=== PATIENT | female | born 1965 | race Caucasian/White ===

== ENCOUNTER 2017-11-20 04:58 | Inpatient (IN) | payer OTHER ==
[~2017-11-20] VITALS: Ht 162.6 cm; Wt 74.1 kg
[2017-11-20 05:33] LABS: HEMATOCRIT 35.1 % (36.0-46.0); HEMOGLOBIN 11.7 G/DL (11.9-15.5); MCH 25.7 PG (29.0-34.0); MCHC 33.3 G/DL (30.0-36.0); MCV 77.1 FL (83-99); PLATELET COUNT 153 K/uL (156-360); RBC DIS.WIDTH-CV 15.3 % (11.8-14.6); RBC DIS.WIDTH-SD 42.2 % (39-53); RED BLOOD COUNT 4.55 M/uL (3.80-5.20); WHITE BLOOD COUNT 12.9 K/uL (4.1-10.2)
[2017-11-20 05:42] LABS: CHLORIDE 95 mEq/L (99-109); POTASSIUM 3.9 mEq/L (3.7-5.4); SODIUM 135 mEq/L (136-147)
[2017-11-20 05:44] LABS: GLUCOSE 336 mg/dL (70-99)
[2017-11-20 05:48] LABS: CREATININE 1.5 mg/dL (0.6-1.3); GFR ESTIMATE (CALCULATED) 39 mL/min/
[2017-11-20 05:49] LABS: UREA NITROGEN (BUN) 27 mg/dL (9-23)
[2017-11-20 06:04] LABS: LIPASE 22 U/L (1.0-51.0)
[2017-11-20 06:17] LABS: TROP-I INTERPRETATION NEGATIVE; TROPONIN-I 0.01 ng/mL (0.0-0.30)
[2017-11-20 06:29] LABS: ALBUMIN 3.9 g/dL (3.2-4.8)
[2017-11-20 06:31] LABS: TOTAL PROTEIN 7.4 g/dL (6.4-8.3)
[2017-11-20 06:33] LABS: TOTAL BILIRUBIN 0.9 mg/dL (0.0-1.0)
[2017-11-20 06:34] LABS: ALKALINE PHOSPHATASE 76 IU/L (3-129)
[2017-11-20 06:37] LABS: ALT (GPT) 29 IU/L (3-49); AST (GOT) 33 IU/L (2-34); DIRECT BILIRUBIN 0.3 mg/dL (0.0-0.3)
[2017-11-20] MEDS ORDERED: TRICOR48 MG PO (08:26)
[2017-11-20] MEDS ORDERED: CRESTOR20 MG PO (08:26)
[2017-11-20] MEDS ORDERED: ZETIA10 MG PO (08:26)
[2017-11-20] MEDS ORDERED: INSULIN PUMP MC (08:27)
[2017-11-20] MEDS ORDERED: ALTACE10 MG PO (08:28)
[2017-11-20] MEDS ORDERED: VASCEPA1 GM PO (08:28)
[2017-11-20] MEDS ORDERED: CLARITIN10 MG PO (08:29)
[2017-11-20] MEDS ORDERED: METFORMIN HCL850 MG PO (08:29)
[2017-11-20] MEDS ORDERED: LOW DOSE ASPIRI81 M1 PO (08:30)
[2017-11-20 09:12] LABS: HEMATOCRIT 31.4 % (36.0-46.0); HEMOGLOBIN 10.4 G/DL (11.9-15.5); MCV 77.1 FL (83-99)
[2017-11-20 09:54] VITALS: BP 112/70
[2017-11-20 15:52] VITALS: BP 106/64
[2017-11-20 18:25] LABS: INTER. NORMALIZED RATIO 1.3
[2017-11-20 18:28] LABS: PTT 23.5 SEC (25-37)
[2017-11-20 19:40] VITALS: BP 110/68
[2017-11-20 20:35] LABS: HEMATOCRIT 28.5 % (36.0-46.0); HEMOGLOBIN 9.1 G/DL (11.9-15.5); MCH 24.6 PG (29.0-34.0); MCHC 31.9 G/DL (30.0-36.0); PLATELET COUNT 115 K/uL (156-360); RBC DIS.WIDTH-CV 15.6 % (11.8-14.6); RBC DIS.WIDTH-SD 43.2 % (39-53); WHITE BLOOD COUNT 10.1 K/uL (4.1-10.2)
[2017-11-21] VITALS (7 sets, daily range): BP systolic 103–126; BP diastolic 63–85
[2017-11-21 06:52] LABS: HEMATOCRIT 27.9 % (36.0-46.0); HEMOGLOBIN 8.7 G/DL (11.9-15.5); MCH 24.4 PG (29.0-34.0); MCHC 31.2 G/DL (30.0-36.0); MCV 78.4 FL (83-99); PLATELET COUNT 111 K/uL (156-360); RBC DIS.WIDTH-CV 15.9 % (11.8-14.6); RED BLOOD COUNT 3.56 M/uL (3.80-5.20); WHITE BLOOD COUNT 6.8 K/uL (4.1-10.2)
[2017-11-21 07:16] LABS: CHLORIDE 105 MEQ/L (99-109); GLUCOSE 170 mg/dL (70-99); POTASSIUM 4.1 MEQ/L (3.7-5.4); SODIUM 137 MEQ/L (136-147); UREA NITROGEN (BUN) 18 mg/dL (9-23)
[2017-11-21 07:22] LABS: CREATININE 0.9 MG/DL (0.6-1.3); GFR ESTIMATE (CALCULATED) > 59 mL/min/
[2017-11-21 08:46] LABS: HEMATOCRIT 28.6 % (36.0-46.0); HEMOGLOBIN 8.9 G/DL (11.9-15.5); MCH 24.6 PG (29.0-34.0); MCHC 31.1 G/DL (30.0-36.0); PLATELET COUNT 112 K/uL (156-360); RBC DIS.WIDTH-CV 15.9 % (11.8-14.6); RED BLOOD COUNT 3.62 M/uL (3.80-5.20); WHITE BLOOD COUNT 6.7 K/uL (4.1-10.2)
[2017-11-21 19:54] LABS: HEMATOCRIT 29.3 % (36.0-46.0); HEMOGLOBIN 9.1 G/DL (11.9-15.5); MCH 24.7 PG (29.0-34.0); MCHC 31.1 G/DL (30.0-36.0); MCV 79.4 FL (83-99); PLATELET COUNT 108 K/uL (156-360); RBC DIS.WIDTH-CV 15.9 % (11.8-14.6); RBC DIS.WIDTH-SD 46.2 % (39-53); RED BLOOD COUNT 3.69 M/uL (3.80-5.20); WHITE BLOOD COUNT 6.2 K/uL (4.1-10.2)
[2017-11-21 20:06] LABS: INTER. NORMALIZED RATIO 1.2
[2017-11-21 20:09] LABS: PTT 25.9 SEC (25-37)
[2017-11-22 04:08] VITALS: BP 116/64
[2017-11-22 07:15] VITALS: BP 119/69
[2017-11-22 08:32] LABS: BASOPHIL (%) 0.6 % (0-1); EOSINOPHIL (%) 0.4 % (0-5); HEMATOCRIT 29.3 % (36.0-46.0); HEMOGLOBIN 9.2 G/DL (11.9-15.5); IMMATURE GRANULOCYTE (%) 0.7 % (0.0-0.7); LYMPHOCYTE (%) 20.6 % (15-42); LYMPHOCYTE COUNT 1.4 K/uL (1.0-2.8); MCH 25.2 PG (29.0-34.0); MCHC 31.4 G/DL (30.0-36.0); MCV 80.3 FL (83-99); MONOCYTE (%) 6.2 % (3-12); MONOCYTE COUNT 0.4 K/uL (0-0.8); NEUTROPHIL (%) 71.5 % (45-76); NEUTROPHIL COUNT 4.8 K/uL (1.8-6.4); PLATELET COUNT 107 K/uL (156-360); RBC DIS.WIDTH-CV 15.9 % (11.8-14.6); RBC DIS.WIDTH-SD 45.8 % (39-53); RED BLOOD COUNT 3.65 M/uL (3.80-5.20); WHITE BLOOD COUNT 6.8 K/uL (4.1-10.2)
[2017-11-22] MEDS ORDERED: PANTOPRAZOLE SO40 MG PO (11:53)
[2017-11-22 12:23] VITALS: BP 144/81
== END 2017-11-22 12:50 | disposition home or self-care (01) | DRG 378 ==
LOC: EME 04:58 → 2EAST 07:32 → EDOF 07:32 → ENRESERV 07:41 → 2EAST 09:41
PROVIDERS: Internal Medicine; Specialist
DX: K92.0 Hematemesis (principal); D62 Acute posthemorrhagic anemia; N17.9 Acute kidney failure, unspecified; D69.6 Thrombocytopenia, unspecified; K22.70 Barrett's esophagus without dysplasia; K29.40 Chronic atrophic gastritis without bleeding; K29.80 Duodenitis without bleeding; K31.7 Polyp of stomach and duodenum; R55 Syncope and collapse; I10 Essential (primary) hypertension; E11.9 Type 2 diabetes mellitus without complications; E78.5 Hyperlipidemia, unspecified; E78.1 Pure hyperglyceridemia; K44.9 Diaphragmatic hernia without obstruction or gangrene; Z96.41 Presence of insulin pump (external) (internal); E66.9 Obesity, unspecified; Z68.28 Body mass index [BMI] 28.0-28.9, adult; Z79.82 Long term (current) use of aspirin; Z79.4 Long term (current) use of insulin; Z85.828 Personal history of other malignant neoplasm of skin; Z86.73 Personal history of transient ischemic attack (TIA), and cerebral infarction without residual deficits
CPT/HCPCS: 70470; 70551; 76705; 80048; 80076; 82948; 83690; 84484; 85014; 85018; 85025; 85027; 85610; 85730; 86850; 86900; 86901; 86920; 88305; 88342 TC; 93005; 99281; 99285; C9113; J2250; J2405; J7030